=== PATIENT | female | born 1980 | race Caucasian/White ===

== ENCOUNTER 2019-10-17 21:45 | Inpatient (IN) | payer SELFPAY ==
[2019-10-17] MEDS ORDERED: Fentanyl 100 MCG/2 ML VIAL ONE (22:09)
[2019-10-17] MEDS ORDERED: Acetaminophen 650 MG Suppository PR PRN (22:45)
[2019-10-17] MEDS ORDERED: Morphine 2 MG/ML SYRINGE SLOW IVP PRN (22:51)
[2019-10-17] MEDS ORDERED: Morphine 4 MG/ML VIAL ONE (23:09)
[2019-10-17 23:45] LABS: Lactic Acid 1.2 mmol/L (0.5-2.2)
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
[2019-10-18 00:52] VITALS: BMI 32.4
[2019-10-18] MEDS: Sodium Chloride 0.9% 1,000 ML IV SCH ×2 (01:00→20:08)
[2019-10-18] MEDS: Acetaminophen 325 MG TAB PO PRN ×2 (02:52→10:39)
[2019-10-18] MEDS ORDERED: Fentanyl 100 MCG/2 ML VIAL SLOW IVP SCH ×2 (03:15→07:00)
[2019-10-18 04:03] LABS: Amphetamine Detected (NotDetected); Barbiturates Screen Not Detected (NotDetected); Benzodiazepine Screen Detected (NotDetected); Cocaine Metabolite Screen Not Detected (NotDetected); Medtox Control Line Valid? VALID (VALID); Medtox Reader # READER 4; Methadone Not Detected (NotDetected); Methamphetamine Not Detected (NotDetected); Opiate Screen Detected (NotDetected); Oxycodone Screen Not Detected (NotDetected); Phencyclidine (PCP) Not Detected (NotDetected); THC/Cannabinoid Screen Not Detected (NotDetected); Tricyclic Screen Not Detected (NotDetected)
[2019-10-18] MEDS: Piperacillin/Tazobactam 4.5 GM in Sodium Chloride 0.9% 100 ML IVPB SCH ×3 (04:17→20:08)
[2019-10-18] MEDS: Vancomycin HCl 1.25 GM in Sodium Chloride 0.9% 250 ML 250 ML IVPB SCH ×3 (04:23→21:33)
[2019-10-18 04:51] LABS: #Basophils 0.1 thou/uL (0.0-0.2); #Eosinphils 0.3 thou/uL (0.0-0.7); #Lymphocytes 1.8 thou/uL (1.20-3.40); #Monocytes 0.4 thou/uL (0.11-0.59); #Neutrophils 3.6 thou/uL (1.40-6.50); %Basophils 0.9 % (0.0-1.0); %Eosinophils 4.4 % (0.0-10.0); %Lymphocytes 29.3 % (21.0-51.0); %Monocytes 6.4 % (0.0-10.0); Hemoglobin 12.6 g/dL (12.0-16.0); Mean Corpuscular HGB CONC 32.2 g/dL (32.0-36.0); Mean Corpuscular Hemoglobin 28.8 pg (27.0-31.0); Mean Corpuscular Volume 89.6 fL (78.0-98.0); Mean Platelet Volume 8.8 fL (7.4-10.4); Platelet Count 213 thou/uL (130-400); RBC Distribution Width 12.6 % (11.5-14.5); Red Blood Cell (RBC) Count 4.38 mill/uL (4.20-5.40); White Blood Cell (WBC) Count 6.1 thou/uL (4.8-10.8)
[2019-10-18 05:10] LABS: Anion Gap 10 mmol/L (10-20); BUN (Urea Nitrogen) 11 mg/dL (7.0-18.7); Calc. Creatinine Clearance 165 mL/min (70-130); Calcium 7.9 mg/dL (7.8-10.44); Carbon Dioxide 28 mmol/L (22-29); Chloride 105 mmol/L (98-107); Estimated GFR-MDRD Greater than 90; Glucose 94 mg/dL (70-105); Potassium 3.5 mmol/L (3.5-5.1); Sodium 139 mmol/L (136-145)
[2019-10-18] MEDS: Famotidine/PF 20 mg/2ml Vial SLOW IVP SCH ×2 (07:22→20:08)
[2019-10-18] MEDS ORDERED: Ondansetron PF 4 MG/2 ML Vial IVP PRN (10:31)
--- NOTE | 2019-10-18 12:53 | CT ---
Exam: Head CT without contrast HISTORY: Severe headache. COMPARISON: none FINDINGS: Hemorrhage: No intraparenchymal hemorrhage or extra-axial hematoma. Brain parenchyma: Cortical rangel-white matter differentiation is preserved. No mass effect or midline shift. Basilar cisterns are patent. Ventricular system: Ventricles and sulci are patent and symmetric. Calvarium: Intact. Sinuses and mastoid air cells: Adequate aeration of the paranasal sinuses. Minimal opacification of t he inferior left mastoid air cells. IMPRESSION: 1. No acute intracranial process 2. Partial opacification inferior left mastoid air cells.
[2019-10-18] MEDS: Ketorolac Tromethamine 30 MG/ML VIAL IVP SCH ×3 (12:55→23:37)
[2019-10-18] MEDS: Fentanyl 100 MCG/2 ML VIAL SLOW IVP PRN ×3 (13:00→20:20)
[2019-10-18] MEDS: Baclofen 10 MG TAB PO SCH ×2 (16:08→20:08)
[2019-10-18] MEDS: Neomycin/Polymyxin/HC Otic Solution 10 ML BOT L EAR SCH ×2 (16:10→20:24)
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
[2019-10-18] MEDS ORDERED: Loratadine 10 MG TAB PO PRN (18:14)
[2019-10-18 19:44] LABS: Syphilis Antibody Nonreactive (Nonreactive); Syphilis Antibody Index 0.02 S/CO (<1.00 Non-Reactive)
[2019-10-18 19:47] LABS: HBCM Index 0.08 S/CO (0-0.79); HBSAg Index 0.16 S/CO (0-0.99); HIV (1/2) Antibody/Antigen Non-Reactive (NonReactive); HIV 1/2 INDEX 0.11 S/CO (<1.00); Hep A IgM AB Non-Reactive (NonReactive); Hep A IgM S/CO 0.12 S/CO (0-0.79); Hep B Surf Ag Non-Reactive S/CO (NonReactive); Hep C IgG Ab Non-Reactive (NonReactive); Hep C Index 0.07 S/CO (0-0.79); Hepatitis B Core IgM Abs Non-Reactive (NonReactive)
[2019-10-18] MEDS: diphenhydrAMINE 25 MG CAP PO PRN (20:20)
[2019-10-19] MEDS: Vancomycin HCl 1.25 GM in Sodium Chloride 0.9% 250 ML 250 ML IVPB SCH (04:27)
[2019-10-19] MEDS: Fentanyl 100 MCG/2 ML VIAL SLOW IVP PRN ×5 (04:27→21:22)
[2019-10-19] MEDS: Piperacillin/Tazobactam 4.5 GM in Sodium Chloride 0.9% 100 ML IVPB SCH ×3 (04:27→21:14)
[2019-10-19] MEDS: Ketorolac Tromethamine 30 MG/ML VIAL IVP SCH ×3 (05:37→18:27)
[2019-10-19] MEDS: Neomycin/Polymyxin/HC Otic Solution 10 ML BOT L EAR SCH ×3 (08:50→21:15)
[2019-10-19] MEDS: Famotidine/PF 20 mg/2ml Vial SLOW IVP SCH ×2 (08:50→21:14)
[2019-10-19] MEDS: Baclofen 10 MG TAB PO SCH ×3 (08:50→21:13)
[2019-10-19] MEDS: Sodium Chloride 0.9% 1,000 ML IV SCH (08:51)
[2019-10-19] MEDS: Carbamide Peroxide 6.5% Otic Drops 15 ml Bottle EA EAR SCH ×2 (13:31→21:14)
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
[2019-10-19] MEDS: diphenhydrAMINE 25 MG CAP PO PRN (22:20)
[2019-10-20] MEDS: Ketorolac Tromethamine 30 MG/ML VIAL IVP SCH ×3 (00:16→13:46)
[2019-10-20] MEDS: Fentanyl 100 MCG/2 ML VIAL SLOW IVP PRN ×5 (01:00→16:03)
[2019-10-20 05:07] LABS: Hemoglobin 11.7 g/dL (12.0-16.0); Mean Corpuscular Hemoglobin 29.1 pg (27.0-31.0); Mean Corpuscular Volume 90.8 fL (78.0-98.0); Mean Platelet Volume 9.2 fL (7.4-10.4); Platelet Count 189 thou/uL (130-400); RBC Distribution Width 12.9 % (11.5-14.5); Red Blood Cell (RBC) Count 4.03 mill/uL (4.20-5.40); White Blood Cell (WBC) Count 7.4 thou/uL (4.8-10.8)
[2019-10-20] MEDS: Piperacillin/Tazobactam 4.5 GM in Sodium Chloride 0.9% 100 ML IVPB SCH ×3 (05:19→20:29)
[2019-10-20 05:22] LABS: Anion Gap 11 mmol/L (10-20); BUN (Urea Nitrogen) 10 mg/dL (7.0-18.7); Calc. Creatinine Clearance 170 mL/min (70-130); Calcium 8.1 mg/dL (7.8-10.44); Carbon Dioxide 25 mmol/L (22-29); Chloride 106 mmol/L (98-107); Estimated GFR-MDRD Greater than 90; Glucose 131 mg/dL (70-105); Potassium 3.9 mmol/L (3.5-5.1); Sodium 138 mmol/L (136-145)
[2019-10-20] MEDS: Famotidine/PF 20 mg/2ml Vial SLOW IVP SCH ×2 (09:09→20:29)
[2019-10-20] MEDS: Baclofen 10 MG TAB PO SCH ×3 (09:14→20:29)
[2019-10-20] MEDS: Carbamide Peroxide 6.5% Otic Drops 15 ml Bottle EA EAR SCH ×2 (09:16→20:34)
[2019-10-20] MEDS: Neomycin/Polymyxin/HC Otic Solution 10 ML BOT L EAR SCH ×3 (09:56→20:35)
[2019-10-20] MEDS ORDERED: hydrALAZINE 20 MG/ML VIAL SLOW IVP PRN (11:45)
--- NOTE | 2019-10-20 13:55 | PDOC.HOSPP ---
- Subjective Encounter Date: 10/20/19 Encounter Time: 09:50 Subjective: still feels pain on eren R. side of the neck. several folliculitis on the scalp - - pt states those are all quite painful. - Objective Vital Signs & Weight: Vital Signs (12 hours) Temp Pulse Resp BP Pulse Ox 10/20/19 07:40 97.6 F 86 16 152/86 H 94 L Weight Weight 213 lb 10.047 oz I&O: 10/19/19 10/20/19 10/21/19 06:59 06:59 06:59 Intake Total 2550 1280 Output Total 600 Balance 1950 1280 Result Diagrams: 10/20/19 04:13 10/20/19 04:13 Hospitalist ROS - Medication Medications: Active Medications Generic Name Dose Route Start Last Admin Trade Name Freq PRN Reason Stop Dose Admin Acetaminophen 650 mg 10/17/19 22:45 10/18/19 10:39 Tylenol PO 650 mg Q4H PRN Administration Headache/Fever/Mild Pain (1-3) Baclofen 5 mg 10/18/19 15:00 10/20/19 09:14 Lioresal PO 5 mg TID OH Administration Carbamide Perox/Anhydrous Glycerin 5 drop 10/19/19 09:00 10/20/19 09:16 Debrox 6.5% Otic EA EAR 5 drp BID OH Administration Diphenhydramine HCl 25 mg 10/18/19 18:14 10/19/19 22:20 Benadryl PO 25 mg Q6H PRN Administration Itching & Insomnia Famotidine 20 mg 10/18/19 09:00 10/20/19 09:09 Pepcid SLOW IVP 20 mg Q12HR OH Administration Fentanyl 50 mcg 10/19/19 10:41 10/20/19 12:23 Sublimaze SLOW IVP 50 mcg Q3H PRN Administration Pain Piperacillin Sod/Tazobactam 100 mls @ 200 mls/hr 10/18/19 04:30 10/20/19 05: 19 Sod 4.5 gm/ Sodium Chloride IVPB 100 mls 0430,1230,2030 OH Administration Ketorolac Tromethamine 30 mg 10/18/19 12:00 10/20/19 13:46 Toradol IVP 10/23/19 12:01 30 mg Q6HR OH Administration Neomycin/Polymyxin/Hydrocortisone 3 drop 10/18/19 15:00 10/20/19 09:56 Cortisporin Otic Solution L EAR 10/28/19 09:01 3 drop TID OH Administration Ondansetron HCl 4 mg 10/18/19 10:31 10/18/19 10:39 Zofran IVP 4 mg Q8H PRN Administration Nausea/Vomiting Sodium Chloride 10 ml 10/17/19 22:45 10/20/19 09:09 Flush - Normal Saline IVF 10 ml Q12HR PRN Administration Saline Flush Sodium Chloride 10 ml 10/17/19 22:45 10/20/19 13:47 Flush - Normal Saline IVF 10 ml PRN PRN Administration Saline Flush - Exam General Appearance: awake alert General - other findings: follicultiis on scalp- r.. mastoid area--tender Eye: PERRL Neck: supple Heart: RRR, normal peripheral pulses Respiratory: CTAB, normal chest expansion Gastrointestinal: soft, normal bowel sounds Neurological: no focal deficits Hosp A/P - Plan note edited to reflect today's care of plan. Acute mastoiditis Acute otitis externa - CT brain shows opacification of mastoid air cells. CT internal auditory canal shows acute mastoiditis left ear - continue zosyn, s/p vancomycin - seen by ENT, started on topical polymixin, neomycin/hydrocortisone. - increase fentanyl to 50 mg q3 hours for pain - started baclofen for nerve pain Folliculitis of scalp - hair sample positive for pseudomonas? Possibly colonization - continue zosyn - failed outpatient bactrim and cephalex Recent unprotected sexual intercourse - HIV , hepatitis panel, syphilis negative - gc/chlamydia normal Dispo: pending improvement in pain
[2019-10-20] MEDS ORDERED: Piperacillin/Tazobactam 4.5 GM VIAL ONE (14:28)
[2019-10-20 15:08] LABS: Chlam.trachomatis by PCR,Urine Not Detected (NotDetected)
[2019-10-20] MEDS ORDERED: HYDROcodone/Acetaminophen 5/325 mg Tablet PO PRN (16:38)
[2019-10-20] MEDS: diphenhydrAMINE 25 MG CAP PO PRN (19:04)
[2019-10-20] MEDS: Ketorolac Tromethamine 30 MG/ML VIAL IVP PRN (20:28)
[2019-10-20] MEDS: HYDROcodone/Acetaminophen 5/325 mg Tablet PO PRN (21:25)
[2019-10-21] MEDS: HYDROcodone/Acetaminophen 5/325 mg Tablet PO PRN ×2 (01:30→05:59)
[2019-10-21] MEDS: Piperacillin/Tazobactam 4.5 GM in Sodium Chloride 0.9% 100 ML IVPB SCH ×3 (05:57→20:20)
[2019-10-21] MEDS: Carbamide Peroxide 6.5% Otic Drops 15 ml Bottle EA EAR SCH ×2 (08:10→22:37)
[2019-10-21] MEDS: Neomycin/Polymyxin/HC Otic Solution 10 ML BOT L EAR SCH ×3 (08:10→21:20)
[2019-10-21] MEDS: diphenhydrAMINE 25 MG CAP PO PRN ×2 (08:11→22:36)
[2019-10-21] MEDS: Baclofen 10 MG TAB PO SCH (08:11)
[2019-10-21] MEDS: Famotidine/PF 20 mg/2ml Vial SLOW IVP SCH ×2 (08:12→20:17)
[2019-10-21] MEDS: Ketorolac Tromethamine 30 MG/ML VIAL IVP PRN (08:53)
[2019-10-21] MEDS: Lidocaine 5% Patch TD SCH (11:45)
[2019-10-21] MEDS ORDERED: Baclofen 10 MG TAB PO PRN (12:03)
--- NOTE | 2019-10-21 12:09 | PDOC.HOSPP ---
- Subjective Encounter Date: 10/21/19 Encounter Time: 09:10 Subjective: pt's pain controlled, she agreed to be off IV pain med and try PO analagesics. - Objective Vital Signs & Weight: Vital Signs (12 hours) Temp Pulse Resp BP Pulse Ox 10/21/19 08:00 97.6 F 65 18 148/89 H 95 Weight Weight 213 lb 10.047 oz I&O: 10/20/19 10/21/19 10/22/19 06:59 06:59 06:59 Intake Total 1280 2420 Balance 1280 2420 Result Diagrams: 10/20/19 04:13 10/20/19 04:13 Hospitalist ROS - Medication Medications: Active Medications Generic Name Dose Route Start Last Admin Trade Name Freq PRN Reason Stop Dose Admin Acetaminophen 650 mg 10/17/19 22:45 10/18/19 10:39 Tylenol PO 650 mg Q4H PRN Administration Headache/Fever/Mild Pain (1-3) Carbamide Perox/Anhydrous Glycerin 5 drop 10/19/19 09:00 10/21/19 08:10 Debrox 6.5% Otic EA EAR 5 drp BID OH Administration Diphenhydramine HCl 25 mg 10/18/19 18:14 10/21/19 08:11 Benadryl PO 25 mg Q6H PRN Administration Itching & Insomnia Famotidine 20 mg 10/18/19 09:00 10/21/19 08:12 Pepcid SLOW IVP 20 mg Q12HR OH Administration Piperacillin Sod/Tazobactam 100 mls @ 200 mls/hr 10/18/19 04:30 10/21/19 05: 57 Sod 4.5 gm/ Sodium Chloride IVPB 100 mls 0430,1230,2030 OH Administration Neomycin/Polymyxin/Hydrocortisone 3 drop 10/18/19 15:00 10/21/19 08:10 Cortisporin Otic Solution L EAR 10/28/19 09:01 3 drop TID OH Administration Ondansetron HCl 4 mg 10/18/19 10:31 10/18/19 10:39 Zofran IVP 4 mg Q8H PRN Administration Nausea/Vomiting Sodium Chloride 10 ml 10/17/19 22:45 10/20/19 09:09 Flush - Normal Saline IVF 10 ml Q12HR PRN Administration Saline Flush Sodium Chloride 10 ml 06/10/20 22:45 10/20/19 16:04 Flush - Normal Saline IVF 10 ml PRN PRN Administration Saline Flush - Exam General Appearance: NAD, awake alert General - other findings: mastoiditis and scalp folliculitis ENT: normocephalic atraumatic Neck: supple Heart: RRR, normal peripheral pulses Respiratory: CTAB, normal chest expansion Gastrointestinal: soft, normal bowel sounds Neurological: no focal deficits Psychiatric: A&O x 3 Hosp A/P - Plan note edited to reflect today's care of plan. Acute mastoiditis Acute otitis externa - CT brain shows opacification of mastoid air cells. CT internal auditory canal shows acute mastoiditis left ear - continue zosyn, s/p vancomycin - seen by ENT, started on topical polymixin, neomycin/hydrocortisone. - increase fentanyl to 50 mg q3 hours for pain - started baclofen for nerve pain Folliculitis of scalp - hair sample positive for pseudomonas? Possibly colonization - continue zosyn - failed outpatient bactrim and cephalex Recent unprotected sexual intercourse - HIV , hepatitis panel, syphilis negative - gc/chlamydia normal Dispo: pending improvement in pain changed from IV to PO analgesics + lidocaine patch+ mus relaxants. pseudomonas -- resistant to many PO abx -- sen to zosyn, gent and merum resist't to FQ. and she failed w.. bactrim and cephalex. try docycycline?
[2019-10-21] MEDS: Acetaminophen/Codeine 30-300mg Tablet PO PRN ×2 (13:46→19:39)
[2019-10-21 20:23] VITALS: TEMP 97.7
[2019-10-21] MEDS ORDERED: Lidocaine Patch Removal 1 EACH TOP SCH (23:00)
[2019-10-21] MEDS: Naproxen 500 MG TAB PO PRN (23:00)
[2019-10-22] MEDS ORDERED: HYDROcodone/Acetaminophen 5/325 mg Tablet ONE (00:58)
[2019-10-22] MEDS ORDERED: traZODone HCl 50 MG TAB ONE (00:59)
[2019-10-22] MEDS ORDERED: HYDROcodone/Acetaminophen 5/325 mg Tablet PO SCH (01:00)
[2019-10-22] MEDS ORDERED: traZODone HCl 50 MG TAB PO SCH (01:00)
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
[2019-10-22] MEDS: Acetaminophen/Codeine 30-300mg Tablet PO PRN ×2 (03:42→12:55)
[2019-10-22] MEDS: Piperacillin/Tazobactam 4.5 GM in Sodium Chloride 0.9% 100 ML IVPB SCH (03:44)
[2019-10-22 07:44] VITALS: BP 135/77
[2019-10-22] MEDS: Famotidine/PF 20 mg/2ml Vial SLOW IVP SCH (08:40)
[2019-10-22] MEDS: Neomycin/Polymyxin/HC Otic Solution 10 ML BOT L EAR SCH (08:41)
[2019-10-22] MEDS: Carbamide Peroxide 6.5% Otic Drops 15 ml Bottle EA EAR SCH (08:42)
[2019-10-22] MEDS: Naproxen 500 MG TAB PO PRN (08:49)
[2019-10-22] MEDS: Lidocaine 5% Patch TD SCH (12:55)
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
== END 2019-10-22 13:42 | disposition home or self-care (01) | DRG 155 ==
LOC: ERS 21:45 → ONC 22:43
PROVIDERS: ADMIT Internal Medicine; ATTEND Internal Medicine
DX: H60.502 Unspecified acute noninfective otitis externa, left ear (principal); H70.002 Acute mastoiditis without complications, left ear; H66.92 Otitis media, unspecified, left ear; F44.9 Dissociative and conversion disorder, unspecified; F90.9 Attention-deficit hyperactivity disorder, unspecified type; F43.20 Adjustment disorder, unspecified; F31.9 Bipolar disorder, unspecified; L73.8 Other specified follicular disorders; F42.4 Excoriation (skin-picking) disorder; L98.499 Non-pressure chronic ulcer of skin of other sites with unspecified severity; Z98.51 Tubal ligation status; Z79.899 Other long term (current) drug therapy
CPT/HCPCS: 36415; 70450; 80048; 80074; 80202; 80306; 83605; 85025; 85027; 86780; 87070; 87077; 87186; 87205; 87389; 87491; 87591; 96374; 96375; J1885; J2270; J2405; J2543; J3010; J3370; J3490; J7050; Q0163; S0028